=== PATIENT | male | born 1985 | race Caucasian/White ===

== ENCOUNTER 2022-03-14 13:44 | Emergency (ER) | payer OTHER ==
[2022-03-14] MEDS ORDERED: Diphtheria,Pertussis(Acell),Tetanus Vaccine 0.5 ML Syringe IM ONE (14:11)
[2022-03-14] MEDS ORDERED: ceFAZolin 1 GM Vial IM ONE (14:11)
[2022-03-14] MEDS ORDERED: Acetaminophen/HYDROcodone 325-5 MG Tab PO ONE (14:12)
[2022-03-14] MEDS ORDERED: Water For Injection, Sterile 20 ML ONE (14:28)
== END 2022-03-14 16:10 | disposition home or self-care (01) ==
LOC: MW.ED 13:44
DX: S50.11XA Contusion of right forearm, initial encounter (principal); S40.811A Abrasion of right upper arm, initial encounter; M54.50 Low back pain, unspecified; M54.6 Pain in thoracic spine; Z23 Encounter for immunization; W20.8XXA Other cause of strike by thrown, projected or falling object, initial encounter; Y92.89 Other specified places as the place of occurrence of the external cause; Y99.0 Civilian activity done for income or pay
CPT/HCPCS: 72128; 72131; 73090; 90471; 90715; 96372; 99284; A9270; J0690